=== PATIENT | male | born 1965 | race Caucasian/White ===

== ENCOUNTER 2021-08-29 08:50 | Emergency (ER) | payer OTHER, SELFPAY ==
[2021-08-29] MEDS ORDERED: Boostrix 0.5 ML (Tdap) VIAL ONE (09:47)
[2021-08-29] MEDS ORDERED: Ketorolac Tromethamine 30 MG/ML VIAL ONE (09:47)
== END 2021-08-29 11:30 | disposition home or self-care (01) ==
LOC: MADERS 08:50
DX: S22.42XA Multiple fractures of ribs, left side, initial encounter for closed fracture (principal); M25.512 Pain in left shoulder; M79.672 Pain in left foot; K21.9 Gastro-esophageal reflux disease without esophagitis; F17.290 Nicotine dependence, other tobacco product, uncomplicated; Z79.899 Other long term (current) drug therapy; V43.52XA Car driver injured in collision with other type car in traffic accident, initial encounter; Y92.410 Unspecified street and highway as the place of occurrence of the external cause
CPT/HCPCS: 90471; 90715; 93005; 96372; J1885